=== PATIENT | female | born 1980 | race Caucasian/White ===

== ENCOUNTER 2024-07-26 15:00 | Emergency (ER) | payer OTHER ==
[~2024-07-26] VITALS: Ht 170.2 cm; Wt 74.8 kg
[2024-07-26 15:37] VITALS: BP 153/93; PULSE 100; RESP 18; TEMP 98; O2SAT 98
== END 2024-07-26 16:53 | disposition home or self-care (01) ==
LOC: ER 15:00
DX: S63.611A Unspecified sprain of left index finger, initial encounter (principal); S63.613A Unspecified sprain of left middle finger, initial encounter; W18.39XA Other fall on same level, initial encounter; Y93.89 Activity, other specified; Y92.89 Other specified places as the place of occurrence of the external cause; Y99.8 Other external cause status
CPT/HCPCS: 29130; 73130; 73200

== ENCOUNTER 2024-10-10 16:10 | Emergency (ER) | payer OTHER ==
[~2024-10-10] VITALS: Ht 170.2 cm; Wt 72.2 kg
[2024-10-10] MEDS: HYDROcodone-ACET 5/325MG TAB PO ONE (16:30)
--- NOTE | 2024-10-10 16:32 | ED.PDOC ---
History of Present Illness HPI Comments 44F presents to the ER w/ no prior Hx associated to the c/c of LE. Pt reports that she was dancing yesterday and her heel inverted, which twisted her left ankle. Denies chills, fever, N/V/D, SOB, CP or other associated symptoms, modifiers, or recent injuries at this time. Chief Complaint: Lower Extremity Time Seen by MD: 16:20 Primary Care Provider: solitario Camargo Notes: Nurses Notes, Medications, Allergies Allergies: Coded Allergies: NO KNOWN ALLERGIES (Unverified , 07/26/24) Information Source: Patient, Spouse Mode of Arrival: Ambulatory Severity: Moderate Timing: Hours Duration: Since onset, Hours Prehospital treatment: None Past Medical History PAST MEDICAL HISTORY: Denies Surgical History: Denies all surgeries DERMATOLOGY PHYSICIAN ASSISTANT History: No Pertinent DERMATOLOGY PHYSICIAN ASSISTANT History Family History Family History: Reviewed,noncontributory to illness, Unknown Social History Smoker: Non-Smoker Alcohol: Denies ETOH Use Drugs: Denies Drug Use Lives In: Home Constitutional: denies: chills, diaphoresis, fatigue, fever, malaise, sweats, weakness, others EENTM: denies: blurred vision, double vision, ear bleeding, ear discharge, ear drainage, ear pain, ear ringing, eye pain, eye redness, hearing loss, mouth pain, mouth swelling, nasal discharge, nose bleeding, nose congestion, nose pain, photophobia, tearing, throat pain, throat swelling, voice changes, others Respiratory: denies: cough, hemoptysis, orthopnea, SOB at rest, shortness of breath, SOB with excertion, stridor, wheezing, others Cardiovascular: denies: chest pain, dizzy spells, diaphoresis, Dyspnea on ex ertion, edema, irregular heart beat, left arm pain, lightheadedness, palpitations, PND, syncope, others Gastrointestinal: denies: abdomen distended, abdominal pain, blood streaked bowels, constipated, diarrhea, dysphagia, difficulty swallowing, hematemesis, melena, nausea, poor appetite, poor fluid intake, rectal bleeding, rectal pain, vomiting, others Genitourinary: denies: abnormal vagina bleeding, burning, dyspareunia, dysuria, flank pain, frequency, hematuria, incontinence, pain, , vagina discharge, urgency, others Neurological: denies: dizziness, fainting, headache, left sided numbness, left sided weakness, numbness, paresthesia, pre-existing deficit, right sided numbness, right sided weakness, seizure, speech problems, tingling, tremors, weakness, others Musculoskeletal: reports: others (ankle pain); denies: back pain, gout, joint pain, joint swelling, muscle pain, muscle stiffness, neck pain Integumetry: denies: bruises, change in color, change in hair/nails, dryness, laceration, lesions, lumps, rash, wounds, others Allergic/Immunocompromised: denies: Difficulty Healing, Frequent Infections, Hives, Itching, others Hematologic/Lymphatic: denies: anemia, blood clots, easy bleeding, easy bruising, swollen glands, others Endocrine: denies: excessive hunger, excessive sweating, excessive thirst, excessive urination, flushing, intolerance to cold, intolerance to heat, unexplained weight gain, unexplained weight loss, others Psychiatric: denies: anxiety, bipolar disorder, depression, hopeless, panic disorder, schizophrenia, sleepless, suicidal, others All Other Systems: Reviewed and Negative Physical Exam Exam Comments Lateral talus is swollen, bruised and tender. General Appearance: No Apparent Distress, Normal HEENT: Normal ENT Inspection, Pharynx Normal, TMs Normal Neck: Full Range of Motion, Non-Tender, Normal, Normal Inspection Respiratory: Chest Non-Tender, Lungs Clear, No Accessory Muscle Use, No Respiratory Distress, Normal Breath Sounds Cardiovascular: No Edema, No JVD, No Murmur, No Gallop, Normal Peripheral Pulses, Regular Rate/Rhythm Breast Exam: Deferred Gastrointestinal: No Organomegaly, Non Tender, No Pulsatile Mass, Normal Bowel Sounds, Soft Genitalia: Deferred Pelvic: Deferred Rectal: Deferred Extremities: No calf tenderness, Normal capillary refill, Normal inspection, Normal range of motion, Non-tender, No pedal edema Musculoskeletal : Apperance: Normal Neurologic: Alert, job trainer II-XII nml as Tested, No Motor Deficits, Normal Affect, Normal Mood, No Sensory Deficits Cerebellar Function: Normal Reflexes: Normal Skin: Dry, Normal Color, Warm Lymphatic: No Adenopathy Was a procedure done? Was a procedure done?: Yes Sedation Sedation?: No Other Procedure Procedure splinting of left ankle, posterior and stirrup splint properly placed with good neurovascular functions. crutches instructions provided by tech Differential Dx Considerations may include: fracture, sprain, strain, contusion, dislocation X-Ray, Labs, Meds, VS Vital Signs Date Time Temp Pulse Resp B/P (MAP) Pulse Ox O2 Delivery O2 Flow Rate FiO2 10/10/24 16:23 98.0 96 17 132/85 (101) 98 Lab Test 10/10/24 16:27 Range/Units Urine Test Negative Negative Time of 1ST Reevaluation: 16:50 Reevaluation 1ST: Unchanged Patient Education/Counseling: Diagnosis, Treatment, Prognosis Family Education/Counseling: Diagnosis, Treatment, Prognosis Additional Information The following tests were ordered, and results were reviewed by me: Labs, XY, PHA Additional Information was gathered from interviewing the following independent historians: Family I reviewed and agreed with the following test results read by other providers: X-Ray I discussed treatment and results with medical personnel Family xray was read as possible small avulsion fracture of navicular bone, but pt has lateral malleolus swelling and pain. i will stirrup and sort leg splint her to ensure immobilization of all involved areas and she is stable to follow up with her doctor Departure 1 Departure Time of Disposition: 18:24 Impression: Primary Impression: Ankle sprain Qualified Codes: S93.402A - Sprain of unspecified ligament of left ankle, initial encounter Disposition: HOME / SELF CARE / HOMELESS Condition: Good Additional Instructions: cold compress, rest, elevate, use crutches. follow up with your doctor in 3 days. feel free to return for any concerns e-Prescriptions Ibuprofen Micronized (MOTRIN TABLET) 600 Mg Tb 600 MG PO TID PRN, #40 TAB *Black box warning-NSAIDS can increase risk of AL & hypertension, GI irritation, ulceration, bleed, perferation. Do not use post cardiac surgery. Use short duration/lowest effective dose. Prov: ILIANA ELLISON MD 10/10/24 Discharged With: Self, Spouse Critical Care Note Critical Care Time?: No Stability Stability form required: No I personally scribed for ILIANA ELLISON MD ([email or web address]) on 10/10/24 at 16:32. Electronically submitted by Hai Dugan ([email or web address]). ILIANA ELLISON MD Oct 10, 2024 16:32
--- NOTE | 2024-10-10 17:36 | DVH ---
EXAM: XY L ANKLE 3 VIEW CLINICAL HISTORY: injury COMPARISON: None TECHNIQUE: XY L ANKLE 3 VIEW Findings/Impression: 3 views of the left ankle. Possible tiny avulsion fracture of the navicular. Correlate with physical exam and point tenderness. Mild soft tissue edema with a small joint effusion. There is no evidence of dislocation, blastic, or lytic lesions. No radiopaque foreign bodies.
[2024-10-10] MEDS ORDERED: IBU600T PO (18:25)
[2024-10-10 18:45] VITALS: BP 111/67; PULSE 84; RESP 16; TEMP 98.6; O2SAT 96
== END 2024-10-10 18:57 | disposition home or self-care (01) ==
LOC: ER 16:10
DX: S93.492A Sprain of other ligament of left ankle, initial encounter (principal); X50.1XXA Overexertion from prolonged static or awkward postures, initial encounter; Y93.89 Activity, other specified; Y92.89 Other specified places as the place of occurrence of the external cause; Y99.8 Other external cause status
CPT/HCPCS: 29515; 73610; 81025